=== PATIENT | male | born 1950 ===

== ENCOUNTER 2025-04-11 10:49 | Outpatient (AMB) | payer MEDICARE, SELFPAY ==
--- OUTSIDE RECORDS SUMMARY | 2025-04-11 10:55 | XMS_ITS | Clinical Summary ---
Author Organization [facility] ity Address [address] [place] [address] Care Team Providers Care Pathology Secretary Name Role Phone Unavailable Primary Care Provider Unavailabl e Social History Tobacco Use Types Packs/Day Years Used Date Smoking Tobacco: Never Assessed Sex and Gender Information Value Date Recorded Sex Assigned at Not on file Legal Sex Male 10:15 PM EST Gender Identity Not on file Sexual Orientation Not on file Plan of Treatment Health Maintenance Due Date Last Done Comments DTaP,Tdap,and Td Vaccines (1 - Tdap) 1971 Pneumococcal Vaccine: 50+ Ye ars (1 of 1 - PCV) 2002 Zoster Vaccines (1 of 2) 2002 COVID-19 Vaccine ( - 2023-2 5 season) 2024 Influenza Vaccine (Season Ended) 2025 RSV Immunization Adult Patie nts (1 - 1-dose 75+ series) 2027 HIB Vaccines Aged Out No longer eligi ble based on patient's age to complete this topic HPV Vaccines Aged Out No longer eligi ble based on patient's age to complete this topic Hepatitis A Vaccines Aged Out No long er eligible based on patient's age to complete this topic Hepatitis B Vaccines Aged Out No long er eligible based on patient's age to complete this topic IPV Vaccines Aged Out No longer eligi ble based on patient's age to complete this topic MMR Vaccines Aged Out No longer eligi ble based on patient's age to complete this topic Meningococcal ACWY Vaccine Aged Out N o longer eligible based on patient's age to complete this topic Meningococcal B Vaccine Aged Out No l onger eligible based on patient's age to complete this topic RSV Immunization Patients Un lazaro 20 months Aged Out No longer eligible b ased on patient's age to complete this topic Varicella Vaccines Aged Out No longer eligible based on patient's age to complete this topic
--- NOTE | 2025-04-11 11:18 | A.SPINEOV_ITS ---
Intake Visit Reasons: LBP & Neck pain Intake Note: Mr. Suárez, previous pt. is here today c/o low back and neck pain. [place] [facility] [place] 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 HPI: This 74-year-old male has a history of a L4-5 L5-S1 decompression and fusion. He comes in complaining of back pain that can radiate down his legs. On further questioning, he states that he has been falling frequently. In July 2024 he had a big fall: He fell from a standing position forward on his forehead. He was seen at [facility] ED. several imaging studies were done, including a CT of the cervical spine and a lumbar spine myelogram despite the fact that he can undergo MRIs. Since then, he is complaining of bilateral arm numbness and a severe weakness of his right hand. No further follow-up was done at [facility]. PMH: Diabetes mellitus, hypertension, hypercholesterolemia Medications: Mounjaro, baclofen, furosemide, gabapentin, losartan, metformin, metoprolol, pioglitazone on rosuvastatin Allergies: NKDA Social history: . Nonsmoker Physical Exam: Height 6'1 weight 330 lb. He walks with a spastic gait and uses a walker. He has diffuse right arm weakness with the distal part more affected than the proximal part. Biceps muscle was 4/5 on the right side Wrist extension and flexion is 3/5 on the right side, Hand international project manager is 2/5 on the right side. There is proximal leg weakness 4/5 bilaterally. Sensory exam is intact. He has hyperreflexia on the right side with a Huy reflex on the right side. Radiological Studies: A CT myelogram of the lumbar spine shows a good decompression at the L4-5 and L5-S1 region. There is no imaging available to examined spinal cord compression. Impression/Plan: This 74-year-old male is most likely suffering from cervical spinal cord compression. His mechanism of injuries hyperextension. Clinically the distal part of the arm is more affected than the proximal part and the upper extremities are more involved than the lower extremities, which is suggestive for a central cord syndrome. We will obtain a stat MRI of the cervical spine and he will return to my office to discuss the results. Thank you for allowing me to participate in your patients care. total time spent was 50 minutes in counseling ,coordination of plan, personal review of imaging, surgical decision making and subsequent plan Jama Montenegro MD, PhD Spine Fellowship Trained Neurosurgeon Director, [facility] Orders: Orders MR cervical spine wo con Today S14.129A - Central cord syndrome at unspecified level of cervical spinal cord, initial encounter Coding Level of Care Code New Pt Level 4 (32585) Diagnoses Central cord syndrome, initial encounter S14.129A Encounter type: initial encounter
== END 2025-04-11 12:06 | disposition home or self-care (01) ==
LOC: HO.HNS 10:50
PROVIDERS: PCP Physician Assistant; Referring Provider Physician Assistant; Visit Provider Neurological Surgery
DX: S14.129A Central cord syndrome at unspecified level of cervical spinal cord, initial encounter (principal)
CPT/HCPCS: 99204

== ENCOUNTER → 2025-04-11 10:49 | Outpatient (BNVA) | payer MEDICARE, SELFPAY | PROVIDERS: PCP Physician Assistant; Referring Provider Physician Assistant; Visit Provider Neurological Surgery | DX: S14.129A Central cord syndrome at unspecified level of cervical spinal cord, initial encounter (principal); R26.1 Paralytic gait; X58.XXXA Exposure to other specified factors, initial encounter; Y93.9 Activity, unspecified; Y92.9 Unspecified place or not applicable; Y99.9 Unspecified external cause status | CPT/HCPCS: 99202 ==

== ENCOUNTER 2025-04-30 12:58 | Outpatient (AMB) | payer MEDICARE, SELFPAY ==
--- NOTE | 2025-04-30 13:29 | HO.SPINEOV ---
Intake Visit Reasons: MRI f/u Intake Note: Mr. Suárez is here today to F/u on the results to his MRI. 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 He presented to me after an ED visit after hyperextension injury of his neck. He states that he has not function of the right hand and balance problems and proximal leg weakness. The symptoms are progressing. I refer to the specifics to my previous note. On exam, he has weakness of the right side and walks with a spastic gait. I referred him for an urgent MRI of the cervical spine as he suffering from a central cord syndrome. It is unclear to me why no emergent cervical MRI was done at [facility] ED in a patient with a hyperextension injury, neurological deficits and a previous cervical fusion. The MRI shows severe spinal cord compression C4-C5 with myelomalacia and C3-4 moderate spinal cord compression. I reviewed the MRI in detail with the patient and told him that he needs to undergo a C3-4 and C4-5 anterior diskectomy and fusion to decompress the spinal cord. The goal of surgery is to stabilize his neurological decline. Hopefully, there will be improvement. I described the procedure and possible complications. I would like to schedule him within 2 weeks. He needs to stop his Monjauro 1 week prior to surgery. He will also try to obtain a preoperative visit with his primary care physician. I spent 30 minutes in his consult to review imaging and discussing plan of care. 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
--- OUTSIDE RECORDS SUMMARY | 2025-04-30 14:31 | XMS_ITS | Clinical Summary ---
Author Organization [facility] ity Address [address] [place] [address] Care Team Providers Care Healthcare Social Worker Name Role Phone Unavailable Primary Care Provider [...]
== END 2025-04-30 14:33 | disposition home or self-care (01) ==
LOC: HO.HNS 12:59
PROVIDERS: PCP Physician Assistant; Visit Provider Neurological Surgery
DX: S14.129A Central cord syndrome at unspecified level of cervical spinal cord, initial encounter (principal); M47.12 Other spondylosis with myelopathy, cervical region
CPT/HCPCS: 99214

== ENCOUNTER 2025-04-30 12:58 | Outpatient (REF) | payer MEDICARE, SELFPAY ==
--- NOTE | ~2025-04-30 | XR_ITS ---
EXAMINATION: XR CERVICAL SPINE 2-3 VIEWS HISTORY: S14.129A - Central cord syndrome at unspecified level of cervical spinal... COMPARISON: There are no prior studies available for comparison. FINDINGS: AP, lateral, and swimmer's views of the cervical spine are submitted. Osseous mineralization is normal. The patient is status post anterior fusion of C5 and C6 with plate and screws. The hardware is intact. There is moderate to severe degenerative disc disease with disc space narrowing and osteophyte formation, most prominent at C4-5. Vertebral bodies maintain normal height without evidence of fracture or subluxation. There is no prevertebral soft tissue swelling. Calcifications in the neck are likely related to the internal carotid arteries. XR/XR cervical spine 2V IMPRESSION: Status post anterior fusion of C5 and C6. Degenerative changes as described. Electronically signed by: Tom Jade MD 05/01/2025 07:41 AM EDT
== END 2025-04-30 12:59 | disposition home or self-care (01) ==
LOC: HO.HOSX 12:58
PROVIDERS: PCP Physician Assistant; Visit Provider Neurological Surgery
DX: M47.12 Other spondylosis with myelopathy, cervical region (principal); S14.129A Central cord syndrome at unspecified level of cervical spinal cord, initial encounter
CPT/HCPCS: 72040; 99212

== ENCOUNTER → 2025-04-30 14:44 | Outpatient (BNV) | payer MEDICARE, SELFPAY | PROVIDERS: PCP Physician Assistant; Visit Provider Radiology Diagnostic Radiology | DX: M50.30 Other cervical disc degeneration, unspecified cervical region (principal); Z98.1 Arthrodesis status | CPT/HCPCS: 72040 ==

== ENCOUNTER 2025-05-15 07:06 | Day surgery (SDC) | payer MEDICARE, SELFPAY ==
--- OUTSIDE RECORDS SUMMARY | 2025-05-02 10:55 | XMS_ITS | Clinical Summary ---
Author Organization [facility] ity Address [address] [place] [address] Care Team Providers Care Cadmium Liquor Maker Name Role Phone Unavailable Primary Care Provider [...]
[2025-05-07 07:50] VITALS: BMI 43.1
--- NOTE | 2025-05-08 12:16 | HO.ANESPROP2 ---
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 (Acute) Central cord syndrome (Acute) Past Medical History Medical History Elevated cholesterol Weakness Multiple falls Venous insufficiency of both lower extremities Back pain Umbilical hernia Morbid obesity Left shoulder pain HTN (hypertension) DM feet Diabetes Actinic keratoses Surgical History Surgical History History of shoulder surgery Hx of cervical spine surgery H/O colonoscopy S/P lumbar laminectomy Social History Social History Are you a primary day care home mother to a significant other at home: No Do you presently have visiting nurse or other home services: No Patient Tobacco Use Status: Never used Tobacco Use of substances other than those prescribed or required for medical reasons: No Have you been hit, kicked, punched, or otherwise hurt by someone within the past year? If so, by whom?: No Are you DNR?: No Advance Directives: No Advance Directives Information Provided: Yes Advance Directives on File: No Poor oral hygiene: Yes Meds Allergies Allergy/AdvReac Type Severity Reaction Status Date / Time No Known Allergies Allergy Verified 05/15/25 08:02 Home Medications ?Medication ?Instructions ?Recorded ?Confirmed ?Last Taken ?Type baclofen 10 mg tablet 10 mg PO TID 05/06/25 05/06/25 Unknown History furosemide 20 mg tablet 20 mg PO BID 05/06/25 05/06/25 Unknown History gabapentin 300 mg capsule 900 mg PO TID 05/06/25 05/07/25 Unknown History losartan 100 mg tablet 100 mg PO DAILY 05/06/25 05/06/25 Unknown History metformin 1,000 mg tablet 1,000 mg PO BID 05/06/25 05/06/25 Unknown History metoprolol succinate 50 mg 50 mg PO DAILY 0605/06/25 05/15/25 06:00 History tablet,extended release 24 hr pioglitazone 30 mg tablet 30 mg PO DAILY 05/06/25 05/06/25 Unknown History rosuvastatin 40 mg tablet 40 mg PO DAILY 05/06/25 05/06/25 Unknown History tirzepatide 12.5 mg/0.5 mL 12.5 mg subcut QWEEK 05/06/25 05/07/25 05/07/25 History subcutaneous pen injector (Bryn) acetaminophen 500 mg tablet 500 mg PO TID 05/07/25 05/07/25 Unknown History Exam Height,Weight and Vital Signs: Height 6 ft 1 in Weight 148.325 kg Pertinent Lab Results Pertinent Lab Results: Hematology ? ? Event Name? Event Result? Date/Time? WBC 4.5 k/mm3 05/02/25 11:19:00 RBC 4.09 m/mm3?Low 05/02/25 11:19:00 Hgb 12.4 Gm/dL?Low 05/02/25 11:19:00 Hct 37.9 %?Low 05/02/25 11:19:00 MCV 92.7 femtoliters 05/02/25 11:19:00 MCH 30.3 pg 05/02/25 11:19:00 MCHC 32.7 Gm/dL?Low 05/02/25 11:19:00 Platelet Count 164 k/mm3 05/02/25 11:19:00 RDW-SD 44.6 femtoliters 05/02/25 11:19:00 MPV 10 femtoliters 05/02/25 11:19:00 Nucleated RBC (Automated) 0 #/100 WBC'S 05/02/25 11:19:00 Abs. NRBC 0 k/mm3 05/02/25 11:19:00 Abs. Neut 2.5 k/mm3 05/02/25 11:19:00 Abs. Lymph 1.7 k/mm3 05/02/25 11:19:00 Abs. Villalba 0.3 k/mm3?Low 05/02/25 11:19:00 Abs. Eo 0 k/mm3 05/02/25 11:19:00 Abs. Baso 0 k/mm3 05/02/25 11:19:00 Neut % 54.8 % 05/02/25 11:19:00 Lymph % 36.9 % 05/02/25 11:19:00 Villalba % 6.3 % 05/02/25 11:19:00 Eos % 0.9 % 05/02/25 11:19:00 Baso % 0.9 % 05/02/25 11:19:00 Imm Gran 0.2 % 05/02/25 11:19:00 Abs. Imm Gran 0 k/mm3 05/02/25 11:19:00 ? Chemistry ? ? Event Name? Event Result? Date/Time? Sodium 144 mmol/L 05/02/25 11:19:00 Potassium 5.1 mmol/L 05/02/25 11:19:00 Chloride 104 mmol/L 05/02/25 11:19:00 Bicarbonate Level 26 mmol/L 05/02/25 11:19:00 Anion Gap 14 mmol/L 05/02/25 11:19:00 Glucose Level 111 mg/dL?High 05/02/25 11:19:00 Hemoglobin A1C (Monitoring) 6.6 %?High 05/02/25 11:19:00 BUN 23 mg/dL 05/02/25 11:19:00 Creatinine-Blood 1.14 mg/dL 05/02/25 11:19:00 Estimated GFR Creatinine 68 ML/MIN/1.73 M2 05/02/25 11:19:00 Calcium 9.7 mg/dL 05/02/25 11:19:00 Narrative Narrative: EKG 04/2025 [id number] Ventricular Rate: 62 ?BPM Atrial Rate: 62 ?BPM QRS Duration: 100 ?ms Q-T Interval: 402 ?ms QTC Calculation(Bazett): 408 ?ms R [place]: 5 ?degrees T [place]: 107 ?degrees Sinus rhythm with 1st degree A-V block Nonspecific T wave abnormality Abnormal ECG When compared with ECG of 20-Jul-2024 18:37, No significant change was found Confirmed by PEDRITO BIRD MD ([id number]) on 05/02/2025 11:54:44 AM?[1] Assessment and Plan Assessment Anesthesia Assessment: Chart Reviewed Documented by User: Della Bales MD 05/15/25 09:11 [facility] Past Medical History Medical History Elevated cholesterol Weakness Multiple falls Venous insufficiency of both lower extremities Back pain Umbilical hernia Morbid obesity Left shoulder pain HTN (hypertension) DM feet Diabetes Actinic keratoses Surgical History Surgical History History of shoulder surgery Hx of cervical spine surgery H/O colonoscopy S/P lumbar laminectomy History of Problems with Anesthesia: No Social History Social History Are you a primary day care home mother to a significant other at home: No Do you presently have visiting nurse or other home services: No Patient Tobacco Use Status: Never used Tobacco Use of substances other than those prescribed or required for medical reasons: No Have you been hit, kicked, punched, or otherwise hurt by someone within the past year? If so, by whom?: No Are you DNR?: No Advance Directives: No Advance Directives Information Provided: Yes Advance Directives on File: No Poor oral hygiene: Yes Meds Allergies Allergy/AdvReac Type Severity Reaction Status Date / Time No Known Allergies Allergy Verified 05/15/25 08:02 Home Medications ?Medication ?Instructions ?Recorded ?Confirmed ?Last Taken ?Type baclofen 10 mg tablet 10 mg PO TID 05/06/25 05/06/25 Unknown History furosemide 20 mg tablet 20 mg PO BID 05/06/25 05/06/25 Unknown History gabapentin 300 mg capsule 900 mg PO TID 05/06/25 05/07/25 Unknown History losartan 100 mg tablet 100 mg PO DAILY 05/06/25 05/06/25 Unknown History metformin 1,000 mg tablet 1,000 mg PO BID 05/06/25 05/06/25 Unknown History metoprolol succinate 50 mg 50 mg PO DAILY 05/06/25 05/06/25 05/15/25 06:00 History tablet,extended release 24 hr pioglitazone 30 mg tablet 30 mg PO DAILY 05/06/25 05/06/25 Unknown History rosuvastatin 40 mg tablet 40 mg PO DAILY 05/06/25 05/06/25 Unknown History tirzepatide 12.5 mg/0.5 mL 12.5 mg subcut QWEEK 05/06/25 05/07/25 05/07/25 History subcutaneous pen injector (Bryn) acetaminophen 500 mg tablet 500 mg PO TID 05/07/25 05/07/25 Unknown History Exam Airway Mallampati Class: III TM Dist: >3cm Neck ROM: Limited Denture: Upper Loose/Missing/Broken Teeth: Yes, Upper and Lower Heart: RRR Lungs: CTA Assessment and Plan Assessment Anesthesia Assessment: Anesthesia Plan Discussed Final Anesthetic Review History of Problems with Anesthesia: No NPO: Yes ASA Class: III Final Preanesthetic Review: Meds/Allgs Chart Reviewed, Consent Obtained/Reviewed and Anes Risks/Benef Reviewed Patient Risk: Intermediate Procedure Risk: Intermediate Anesthetic Plan Anesthetic Plan: GA Disposition: Standard PACU
[2025-05-15] VITALS (12 sets, daily range): BP systolic 119–153; BP diastolic 42–60; PULSE 52–60; RESP 16–20; TEMP 36.1–36.2; O2SAT 92–100
--- NOTE | ~2025-05-15 | FL_ITS ---
EXAMINATION: FL GUIDANCE ONLY HISTORY: C3-5 ACDF COMPARISON: Correlation is made to plain films of the cervical spine dated 04/30/2025. TECHNIQUE: Fluoroscopy time: 6.7 seconds. Cumulative Dose: 2.4842 mGy. DAP: 0.5248 mGym2 Images: 3. FINDINGS: Fluoroscopic spot films of the cervical spine demonstrate anterior cervical disc fusion at C4-5. There is pre-existing anterior fusion at C5-6. FL/FL guidance in OR IMPRESSION: Fluoroscopy during procedure. Please see procedure report for additional information. Electronically signed by: Tom Jade MD 05/15/2025 11:26 AM EDT
--- NOTE | 2025-05-15 06:57 | MHC.SHP ---
Pre-Procedural Eval Section A - 24 Hr Update-Section A only Date of Service: 05/15/25 Section B - Complete if H&P > 30 days Chief Complaint: Central cord syndrome at unspecified level Allergies: Allergies Allergy/AdvReac Type Severity Reaction Status Date / Time No Known Allergies Allergy Verified 05/06/25 14:40 Review of Systems Sugical H&P ROS: Negative: Constitution, Cardiovascular, Respiratory, Neurological, Psychiatric, Hem-Onc, Allergic/Immunologic, Gastrointestinal, Genitourinary, Musculoskeletal, Integumentary, Endocrine and Eyes/Ears/Nose/Throat Exam Surgical H&P Exam: Not Evaluated: HEENT, Not Evaluated: Heart, Not Evaluated: Lungs, Not Evaluated: Extremities, Not Evaluated: Abdomen, Not Evaluated: Skin and Not Evaluated: Neurological Exam Comment: The patient is awake, alert, no acute distress. Proposed surgical incision site is clean, dry, with no signs of recent injury. Plan Diagnosis/Plan: Unchanged I have reviewed the history and physical and performed a pertinent physical examination on my patient. No changes have occurred unless specified. Plan remains the same, C3-5 ACDF. Time Spent With Patient Time: Total time managing care of this patient today __8_ minutes.
[2025-05-15] MEDS: methocarbamoL 750 MG TABLET PO (08:10)
[2025-05-15] MEDS: Gabapentin 300 MG CAPSULE PO (08:10)
[2025-05-15] MEDS: Lactated Ringers 1,000 ML 100 ML IVCONT (08:25)
[2025-05-15 08:27] LABS: Glucose, Whole Blood 111 mg/dL (60-115)
[2025-05-15] MEDS: ceFAZolin Sodium/Dextrose,Iso 2 GM/50 ML PIGGYBACK IV (09:35)
--- NOTE | 2025-05-15 09:41 | PM.DS ---
DS: Providers Provider Date of Service: 05/15/25 Date of discharge: 05/15/25 Primary care physician: SONIA Quick DS: Summary Time Attestation Discharge Coordination Time (in mins): 13 Quality: Safe Use of Opioids Does Pt have an Active Cancer Diagnosis on the Problem List?: No Quality: Stroke Does the patient have a stroke diagnosis?: No Physical Exam Vital Signs: Vital Signs: Last Vital Signs Temp 97.1 F 05/15/25 08:27 Pulse 60 05/15/25 08:27 Resp 16 05/15/25 08:27 BP 146/60 H 05/15/25 08:27 Pulse Ox 97 05/15/25 08:27 O2 Del Method Room Air 05/15/25 08:27 BMI result Body Mass Index 43.1 DS: Data Data Completed and Pending Labs on day of discharge: Laboratory Results - last 24 hr 05/15/25 08:23 POC Glucose 111 Discharge Plan Discharge Patient Disposition: Home, Self-Care Referrals: Gary Bennett PA [Primary Care Provider, Medical] - 1 Week Discharge Medications: New oxycodone 5 mg tablet 5 mg PO Q6H PRN (Reason: pain) Qty: 30 0RF Rx Instructions: Partial Fill upon patient request. Continued metoprolol succinate 50 mg tablet extended release 24 hr 50 mg PO DAILY baclofen 10 mg tablet 10 mg PO TID metformin 1,000 mg tablet 1,000 mg PO BID gabapentin 300 mg capsule 900 mg PO TID furosemide 20 mg tablet 20 mg PO BID pioglitazone 30 mg tablet 30 mg PO DAILY losartan 100 mg tablet 100 mg PO DAILY rosuvastatin 40 mg tablet 40 mg PO DAILY Mounjaro 12.5 mg/0.5 mL pen injector 12.5 mg SUBCUT QWEEK Patient Comments: patient takes every Monday acetaminophen 500 mg Tablet 500 mg PO TID Discharge Orders: Discharge Order (Routine); Ordered 05/15/25 Ordered By: Emmett Rodney Diet: Advance to usual diet Activity on Discharge: As tolerated Activity Restrictions/Additional Instructions: After your spinal surgery we ask you to observe the following restrictions/guidelines: Activity: It is normal to feel some discomfort as you increase your activity, but that will improve with time. We ask you avoid heavy lifting or acitivities that cause pain. As a general rule, 8lbs is a safe limit for lifting right after surgery. Walk as much as you feel comfortable but not to exhaustion. You will feel extra tired the first few days after surgery. Stay well hydrated. It is OK to walk up and down stairs You may return to driving when you are off narcotics (such as vicodin, oxycodone, dilaudid, etc), and you are back to normal functional capacity. If you have any concerns please check with office before driving. Return to work is specific to each patient and each surgery, so please speak with your doctor/PA at first follow up. Please bring paperwork such as FMLA at that time if you need it filled out. Medications: We recommend you take 1,000mg Tylenol every 8 hours for the first few weeks after surgery, if you do not have any liver issues and can tolerate this medication. Do not exceed 4,000mg daily. We will give you a short supply of narcotics after surgery (usually one weeks worth). If you need more please call the office but do not use more than prescribed. You will need to give our office 48 hours notice if you need narcotics refilled and we do not fill narcotics on weekends or evenings. If you are on a narcotic, it is a good idea to take a stool softener such as colace or senna to avoid constipation If you take blood thinner such as aspirin, Plavix, Coumadin, Effient, Eliquis etc for conditions such as Afib, DVT, Pulmonary embolus, coronary disease, stents etc please speak with your surgeon about specific details as to when you can resume these medications. You can resume NSAIDs on post op day 1 (eg: Motrin, Naproxen, etc). Follow up: Please call the office, , after surgery to arrange a 3 week follow up for wound check. Wound Care: You may remove your dressing on the first day after surgery. ?You may ?leave open to air. Please do not remove the steri strips underneath. they will fall off on their own in one week. IT IS NORMAL FOR THE WOUND TO OOZE OR BE BLOODY FOR A FEW DAYS AFTER SURGERY. ?IF THIS HAPPENS JUST PLACE NEW DRESSING OVER IT TO AVOID STAINING CLOTHES. You may shower on post op day # 1 We ask that you do not let the water soak the wound. If it does get wet, just towel dry lightly. Please do not scrub your incision or place any type of chemical/ointment on the wound. No tub baths, pools or jacuzzis for one month. If you have any leaking or redness from your wound, or fevers, please call the office. Print Language: Estonian
[2025-05-15] MEDS: Acetaminophen 1,000 MG/100 ML PIGGYBACK 400 MG IV (10:30)
--- NOTE | 2025-05-15 11:07 | P.OP_ITS ---
Operative Note Operative Note Date of Service: 05/15/25 Narrative: Preoperative Diagnosis: Cervical myelopathy Procedure: C4-C5 Anterior discectomy, arthrodesis and implantation cage ; C4-C5 anterior instrumentation ; local autograft and allograft; microscope Informed Consent was obtained for this operation. I have explained the nature, purpose and benefits of the operation. I have discussed the risks and benefit of the operation including possible complications or adverse events with patient/family. Alternative(s) were discussed with the patient with their relative benefits and risks as well as the consequences of not accepting the operation were included in obtaining consent. 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 He had a previous fusion done C5-6 C6-7 another institution and new imaging shows adjacent degenerative disc disease with severe spinal cord compression at C4-C5 and myelomalacia. C3-4 has moderate stenosis but no changes in his spinal cord. He was scheduled to undergo a C3-C5 anterior diskectomy and fusion. The procedure complications were explained. The patient was consented. The patient was brought to the operating room and endotracheally intubated. The patient was put in supine position with slight extension of the neck. Prep and drape was done followed by timeout. A mid cervical incision was made followed by opening of the platysma. The prevertebral fascia was reached following the natural planes while the physician ssn/ssbn assistant navigator provided manual retraction. The prevertebral fascia was opened to expose the disc space. The previous anterior plate was identified. A spinal needle was placed in the disk space to confirm the C4-C5 level.. The longus colli muscles were released bilaterally and a a self retaining retractor system was inserted. The cervical blades were too short and were replaced with 70 mm lumbar retractor system to get exposure of the cervical spine. Difficult anatomy prompted to review the MRI again and I decided based on the findings to not perform a decompression of the C3-C4 level. This level shows moderate changes but no changes in the spinal cord. The surgery proceeded as planned. Two Webster pins were placed in the C4 and C5 vertebral bodies and distraction was give over the interspace. The discectomy was completed toward the posterior annulus of the disc. The microscope was brought in. The remainder of the discectomy was completed. The posterior ligament was opened and resected to expose the underlying dura. Osteophytes were resected from the body of C4 and C5 to decompress the spinal cord and saved for autograft. Bilateral foraminotomies were done. The endplates were prepared after which a 6 mm cage filled with autograft and allograft was inserted into the disc space. A separate attached plate was locked down with 2 x 14 mm screws as anterior instrumentation. Final x-rays in AP and lateral projection showed a satisfactory position of the implant. The physician ssn/ssbn assistant navigator took over. The Webster pin was removed. Hemostasis was done. He closed the incision in 2 layers with a 3-0 Vicryl. Steri-Strips used to approximate inc ision. An OpSite with Tegaderm was used to cover the incision. All sponge and needle counts were correct. Patient was extubated and transported in stable is to recovery room. Anesthesia: General Estimated Blood Loss (ml): 20 Duration of Surgery: 70 minutes Postoperative Plan: Discharge home Complications: None
[2025-05-15] MEDS: HYDROmorphone HCl 0.5 MG/0.5 ML SYRINGE 0.25 MG IVPUSH ×4 (11:45→12:05)
== END 2025-05-15 13:35 | disposition home or self-care (01) ==
PROVIDERS: PCP Physician Assistant; Visit Provider Neurological Surgery
PROC: (CPT 22551; principal; 2025-05-15 09:50)
DX: S14.125A Central cord syndrome at C5 level of cervical spinal cord, initial encounter (principal); M50.021 Cervical disc disorder at C4-C5 level with myelopathy; G95.89 Other specified diseases of spinal cord; M47.12 Other spondylosis with myelopathy, cervical region; R29.818 Other symptoms and signs involving the nervous system; R26.1 Paralytic gait; R29.6 Repeated falls; X58.XXXA Exposure to other specified factors, initial encounter; Y93.9 Activity, unspecified; Y92.9 Unspecified place or not applicable; Y99.9 Unspecified external cause status; E66.01 Morbid (severe) obesity due to excess calories; Z68.41 Body mass index [BMI] 40.0-44.9, adult; I10 Essential (primary) hypertension; I87.2 Venous insufficiency (chronic) (peripheral); E78.00 Pure hypercholesterolemia, unspecified; E11.9 Type 2 diabetes mellitus without complications; Z79.85 Long-term (current) use of injectable non-insulin antidiabetic drugs; Z79.84 Long term (current) use of oral hypoglycemic drugs; Z79.899 Other long term (current) drug therapy; Z98.1 Arthrodesis status
CPT/HCPCS: 22551; 22853; 22845; 20936; 20930; 82947; C1713; C1889; J0131; J0690; J1171; J2003; J2405; J2704; J3010; L8699

== ENCOUNTER → 2025-05-15 07:06 | Outpatient (BNV) | payer MEDICARE, SELFPAY | PROVIDERS: PCP Physician Assistant; Visit Provider Physician Assistant | DX: M50.021 Cervical disc disorder at C4-C5 level with myelopathy (principal) | CPT/HCPCS: 20930; 20936; 22551; 22845; 22853; 99499 ==

== ENCOUNTER 2025-06-05 10:37 | Outpatient (AMB) | payer MEDICARE, SELFPAY ==
--- NOTE | 2025-06-05 10:40 | HO.SPINEOV ---
Intake Visit Reasons: 1st post-op Intake Note: Mr. Suárez is here today for his 1st post op. 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 Montenegro. Overall he feels his pain has improved since the surgery, however he states he still has pain in his right arm and the base of the left side of his neck. His accompanies him to this visit today who reports that functionally he seems much better the was prior to surgery. Despite this, the patient reports being upset that his right knee is still very painful in his right arm are still very painful from fall that he had sometime prior to surgery. They reported that Dr. Montenegro evaluated him for his right knee in ordered him a right knee imaging, which they wished to review, however I have no record of this in the computer system. The patient is wearing a right knee brace, and does disclose right knee pain, but this is the first I am hearing of it. In regards to his low-grade continued neck / arm pain, this likely will continue to resolve as he heals from surgery. He most likely is suffering from some postoperative inflammation in his causing continued pain. No new neurological deficits. The patient ambulates well and rises from a seated position without difficulty. His anterior incision site is closed and well healing. I would like to follow up with Ulises in 6 weeks for his second postop visit and will obtain a set of X-rays of his neck. I will place a referral to Orthopedics for evaluation of his right knee concerns. 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
--- OUTSIDE RECORDS SUMMARY | 2025-06-05 11:11 | XMS_ITS | Clinical Summary ---
Author Organization [facility] ity Address [address] [place] [address] Care Team Providers Care Shirt Trimmer Name Role Phone Unavailable Primary Care Provider [...] - 2023-2 5 season) 2024 Influenza Vaccine (#1) 2025 RSV Immunization Adult Patie nts (1 [...]
--- OUTSIDE RECORDS SUMMARY | 2025-06-05 11:11 | XMS_ITS | Clinical Summary ---
Author Organization [facility] Address [address] [place] [address] Care Team Providers Care Instructional Support Assistant Name Role Phone Unavailable Primary Care Provider Unavailabl e Social History Tobacco Use Types Packs/Day Years Used Date Smoking Tobacco: Never Assessed Sex and Gender Information Value Date Recorded Sex Assigned at Not on file Gender Identity Not on file Sexual Orientation Not on file Plan of Treatment Health Maintenance Due Date Last Done Comments Hepatitis C Screening 1950 COVID-19 Vaccine (#1) [birth year]30/1953 Depression Screening 1964 Preventative Health Evaluation 1970 DTap / Tdap / Td (1 - Tdap) 1971 Colon Cancer Screening (Colonoscopy) 1997 Shingrix-Zoster Vaccine (1 of 2) 2002 Fall Risk Assessment 2017 Pneumococcal Vaccine (1 of 1 - PCV) 2017 Influenza Vaccine (#1) 2025 RSV Adult > 60+ Yrs or Pregn ant (1 - 1-dose 75+ series) 2027 Hepatitis B Vaccines Aged Out No long er eligible based on patient's age to complete this topic RSV Ped < 20 months Aged Out No longe r eligible based on patient's age to complete this topic
== END 2025-06-05 11:06 | disposition home or self-care (01) ==
LOC: HO.HNS 10:38
PROVIDERS: PCP Physician Assistant; Visit Provider Physician Assistant
DX: M47.12 Other spondylosis with myelopathy, cervical region (principal)
CPT/HCPCS: 99024

== ENCOUNTER → 2025-06-05 10:37 | Outpatient (BNVA) | payer MEDICARE, SELFPAY | PROVIDERS: PCP Physician Assistant; Visit Provider Physician Assistant | DX: Z47.89 Encounter for other orthopedic aftercare (principal); M47.12 Other spondylosis with myelopathy, cervical region; Z98.890 Other specified postprocedural states | CPT/HCPCS: 99212 ==

== ENCOUNTER 2025-07-17 08:40 | Outpatient (REF) | payer MEDICARE, SELFPAY ==
--- OUTSIDE RECORDS SUMMARY | 2025-07-18 09:36 | XMS_ITS | Clinical Summary ---
Author Organization [facility] ity Address [address] [place] [address] Care Team Providers Care Field Recorder Name Role Phone Unavailable Primary Care Provider [...] Vaccine ( - 2023-2 5 season) 2024 Depression Screening 11/20/2024 Influenza Vaccine (#1) 2025 RSV Immunization Adult [...]
--- OUTSIDE RECORDS SUMMARY | 2025-07-18 09:36 | XMS_ITS | Clinical Summary ---
Author Organization [facility] Address [address] [place] [address] Care Team Providers Care Rope Rider Name Role Phone Unavailable Primary Care Provider [...]
== END 2025-07-17 08:41 | disposition home or self-care (01) ==
LOC: HO.HOSX 08:40
PROVIDERS: Visit Provider Physician Assistant
DX: Z13.89 Encounter for screening for other disorder (principal)

== ENCOUNTER 2025-07-31 08:40 | Outpatient (REF) | payer MEDICARE, SELFPAY ==
--- NOTE | ~2025-07-31 | XR_ITS ---
EXAMINATION: XR CERVICAL SPINE CLINICAL INFORMATION: M47.12 - Other spondylosis with myelopathy, cervical region COMPARISON: April 30, 2025 TECHNIQUE: Lateral views in neutral, flexion and extension position. AP and view and swimmer's projection. FINDINGS: Craniocervical junction is intact. Status post anterior cervical fusion plate anchored with screws in the vertebral bodies of C5-C6. Status post intervertebral disc spacer placement C4-5. There is a grade 1 retrolisthesis C3-4 in neutral position which increases in flexion and remains in extension position. Anterior marginal osteophyte formation C3-4. Desiccation seen the soft tissues of both sides of the neck likely ICA. XR/XR cervical spine 4V IMPRESSION: Grade 1 retrolisthesis C3-4 which worsens in flexion position suggesting instability. Status post intervertebral disc spacer placement, new at C4-5. Electronically signed by: Anshu Marquez MD 07/31/2025 11:23 AM EDT
--- OUTSIDE RECORDS SUMMARY | 2025-08-01 09:22 | XMS_ITS | Clinical Summary ---
Author Organization [facility] ity Address [address] [place] [address] Care Team Providers Care Bias Cutter Name Role Phone Unavailable Primary Care Provider [...]
--- OUTSIDE RECORDS SUMMARY | 2025-08-01 09:22 | XMS_ITS | Clinical Summary ---
Author Organization [facility] Address [address] [place] [address] Care Team Providers Care Ice Grinder Name Role Phone Unavailable Primary Care Provider [...]
== END 2025-07-31 08:41 | disposition home or self-care (01) ==
LOC: HO.HOSX 08:40
PROVIDERS: Visit Provider Physician Assistant
DX: Z47.1 Aftercare following joint replacement surgery (principal); M47.12 Other spondylosis with myelopathy, cervical region
CPT/HCPCS: 72050; 99212

== ENCOUNTER 2025-07-31 09:41 | Outpatient (AMB) | payer MEDICARE, SELFPAY ==
--- NOTE | 2025-07-31 10:33 | A.SPINEOV_ITS ---
Intake Visit Reasons: 2nd post op with xrays Intake Note: Mr. Suárez is here today for his 2nd post op with xrays. 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 Montenegro on 05/15/25. He initially presented to clinic complaining of biilateral arm numbness and a severe weakness of his right hand. Today he reports that his right upper extremity strength is very much so improved. He has good hand body finisher, and is able to articulate his hand much better subjectively any was prior to surgery. States he still does get occasional flare-ups of posterior neck pain, and also has a tingling sensation over his left upper extremity, however aside from this he feels he is doing very well. He continues to ambulate with the assistance of a walker for feel falling. He did asked several questions regarding his low back, and stated that he wished to have this re-evaluated at some point. I re viewed his x-ray imaging taken during this visit which shows stable placement of the surgical construct with no notable changes from fluoroscopy. No new neurological deficits. The patient ambulates well and rises from a seated position without difficulty. His anterior incision site is closed and well healed. I would like to set Ulises for a course of occupational therapy and have him follow up with us in clinic thereafter. We may address his lumbar spine concerns had a subsequent follow-up visit. 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
--- OUTSIDE RECORDS SUMMARY | 2025-07-31 11:22 | XMS_ITS | Clinical Summary ---
Author Organization [facility] ity Address [address] [place] [address] Care Team Providers Care Risk Management Manager Name Role Phone Unavailable Primary Care Provider [...] 2002 Zoster Vaccines (1 of 2) 2002 Depression Screening 11/20/2024 COVID-19 Vaccine (1 - 2023-2 5 season) 2025 Influenza Vaccine (#1) 2025 RSV Immunization Adult [...]
--- OUTSIDE RECORDS SUMMARY | 2025-07-31 11:22 | XMS_ITS | Clinical Summary ---
Author Organization [facility] Address [address] [place] [address] Care Team Providers Care Commissary Production Supervisor Name Role Phone Unavailable Primary Care Provider [...]
== END 2025-07-31 11:27 | disposition home or self-care (01) ==
LOC: HO.HNS 09:42
PROVIDERS: PCP Physician Assistant; Visit Provider Physician Assistant
DX: M47.12 Other spondylosis with myelopathy, cervical region (principal)
CPT/HCPCS: 99024

== ENCOUNTER → 2025-07-31 09:51 | Outpatient (BNV) | payer MEDICARE, SELFPAY | PROVIDERS: Visit Provider Radiology Diagnostic Radiology | DX: M53.2X2 Spinal instabilities, cervical region (principal) | CPT/HCPCS: 72050 ==